=== PATIENT | male | born 1945 | race Caucasian/White ===

== ENCOUNTER → 2017-02-12 | Outpatient (CLI) | payer MEDICARE, BC | END | disposition home or self-care (01) | LOC: GMAJ 10:47 | PROVIDERS: ATTEND Family Medicine | DX: R97.20 Elevated prostate specific antigen [PSA] (principal); I10 Essential (primary) hypertension; N41.0 Acute prostatitis ==

== ENCOUNTER → 2017-02-19 | Outpatient (CLI) | payer MEDICARE, BC | END | disposition home or self-care (01) | LOC: GMAJ 10:09 | PROVIDERS: ATTEND Family Medicine | DX: E29.1 Testicular hypofunction (principal) ==

== ENCOUNTER 2017-03-24 09:04 | Emergency (ER) | payer MEDICARE, BC ==
[2017-03-24] MEDS ORDERED: NITROGLYCERIN 0.4 MG 25 EA TAB SL ONE (09:09)
[2017-03-24] MEDS: NITROGLYCERIN 0.4 MG 25 EA TAB SL ONE ×2 (09:12→09:20)
[2017-03-24] MEDS ORDERED: ASPIRIN TABLET 325 MG TAB PO ONE (09:13)
[2017-03-24] MEDS ORDERED: ASPIRIN (CHEWABLE) 81 MG TAB ONE (09:13)
[2017-03-24] MEDS ORDERED: SODIUM CHLORIDE 0.9% (FLUSH) 10 ML SYG IV PRN (09:13)
--- NOTE | 2017-03-24 10:01 | RAD ---
EXAM DESCRIPTION: Chest,1 View CLINICAL HISTORY: 71 years Male, CHEST PAIN COMPARISON: December 10, 2008 TECHNIQUE: AP portable chest. FINDINGS: Fair expansion of the lungs is evident without consolidation, layering effusion, or large mass. Heart size is upper limits of normal as is vascularity without overt failure or pleural effusions. No gross bony, hilar, or mediastinal abnormalities are noted. IMPRESSION: Tortuous aorta and upper normal heart size and vascularity. Electronically signed by: Dalton Owens MD 03/24/2017 10:00 AM CDT
[2017-03-24] MEDS ORDERED: POTASSIUM CHLORIDE ELIXIR 20 MEQ/15 ML UD PO ONE (10:06)
[2017-03-24] MEDS ORDERED: ENOXAPARIN SODIUM 100 MG/ML SYG SUBCU ONE (10:24)
[2017-03-24] MEDS ORDERED: ENOXAPARIN SODIUM 30 MG/0.3 ML SYG SUBCU ONE (10:24)
--- NOTE | 2017-03-24 10:43 | ED.PDOC ---
History of Present Illness - General Chief Complaint: Chest Pain/DC Time Seen by Provider: 03/24/17 09:04 Source: patient Exam Limitations: no limitations - History of Present Illness Initial Comments: the patient is a 71-year-old male presenting to the emergency room secondary to chest pain with associated shortness of breath that was rapid onset approximately one half hour prior to arrival. Chest pain as the left side. It does make him feel weak. It is a squeezing type pressure. He rates it as a 7 or 8 out of 10 for the pain but the shortness of breath is worse. He has 95% on room air. He has felt this sensation before back in 2000 when he received his previous cardiac stents. No syncope or near syncope. No history of pulmonary emboli or DVTs. The patient has had atrial fibrillation with a previous episode of urosepsis less than a year ago. He apparently saw Dr. Shane at the time. The atrial fibrillation resolved after the infection resolved. He does have a history of hypertension and hypercholesterolemia. He is not on Plavix but takes aspirin. He has not had any recent chest pain or shortness of breath aside from this episode. This chest pain is persistent and is not waxing or waning. There is no radiation to the jaw or down the arm. No feeling of palpitations. He is currently in atrial flutter but rate controlled. The patient's heart rate ranges from the mid 40s up to the high 90s. He does take metoprolol at baseline. He has had pauses between beats as long as one and a half seconds, one beat was almost 2 seconds between. Initial blood pressure was in the 180s on the systolic end. After 2 nitroglycerin the chest pain and shortness of breath have dropped to a 1-2 out of 10. Systolic blood pressures have also dropped to the 120s. The patient is feeling much better. Timing/Duration: 1/2 hour Severity: severe Improving Factors: nothing Worsening Factors: nothing Associated Symptoms: chest pain, malaise, shortness of breath Allergies/Adverse Reactions: Allergies Morphine Adverse Reaction (Verified 03/24/17 09:22) Other Penicillins Adverse Reaction (Verified 03/24/17 09:22) Not effective Tetracycline Adverse Reaction (Verified 03/24/17 09:22) Other Makes patient hallucinate heavily Home Medications: Ambulatory Orders Insulin Glargine [Toujeo Solostar] 64 unit SC BEDTIME 04/17/16 Liraglutide [Victoza] 1.8 mg SC BEDTIME 04/17/16 Lisinopril & Hydrochlorothiazi [Lisinopril/Hctz 20-12.5 mg] 1 tab PO DAILY 04/17 Metoprolol Succinate [Toprol Xl] 200 mg PO DAILY 04/17/16 amLODIPine BESYLATE [Norvasc] 10 mg PO DAILY 04/17/16 metFORMIN HCL [Glucophage] 1,000 mg PO BID 04/17/16 Aspirin [Aspirin Adult Low Dose] 81 mg PO DAILY 08/05/16 Cyclobenzaprine HCl [Flexeril] 10 mg PO Q12H PRN #30 tab 08/17/16 Rivaroxaban [Xarelto] 10 mg PO QD #9 tab 08/17/16 Review of Systems - Review of Systems Constitutional: States: malaise, weakness EENTM: States: no symptoms reported Respiratory: States: short of breath Cardiology: States: chest pain Gastrointestinal/Abdominal: States: nausea, vomiting - the patient has had 3 or 4 episodes of nausea and vomiting over the last few weeks. No blood in the vomitus. No diarrhea. No abdominal pain. Genitourinary: States: no symptoms reported Musculoskeletal: States: no symptoms reported Skin: States: no symptoms reported Neurological: States: anxiety - over this episode, weakness - generalized with the chest discomfort Endocrine: States: other - the patient is mildly diaphoretic upon arrival All other Systems: No Change from Baseline Past Medical History (General) - Patient Medical History Hx Stroke: No Hx of COPD: No Hx Cardiac Disorders: Yes - stents Hx Congestive Heart Failure: No Hx Hypertension: Yes Hx Diabetes: Yes Hx MRSA: No Surgical History: other - Vaccination History Hx Influenza Vaccination: No Hx Pneumococcal Vaccination: Yes - Social History Hx Tobacco Use: No Family Medical History - Family History Father Living Status: Hx Cardiac Disease: Yes Physical Exam - Physical Exam General Appearance: Alert, Anxious, Obvious distress Eye Exam: bilateral normal Ears, Nose, Throat: hearing grossly normal, normal ENT inspection, normal pharynx Neck: non-tender, full range of motion, supple Respiratory: chest non-tender, lungs clear, normal breath sounds, no respiratory distress, no accessory muscle use Cardiovascular/Chest: normal peripheral pulses, other - atrial flutter on EKG with rate control Peripheral Pulses: radial,right: 2+, radial,left: 2+, dorsalis pedis,right: 2+, dorsalis pedis,left: 2+, posterior tibialis,right: 2+, posterior tibialis,left: 2+ Gastrointestinal/Abdominal: non tender, soft, other - he patient is morbidly obese Rectal Exam: deferred Back Exam: normal inspection, no CVA tenderness, no vertebral tenderness Extremity: normal range of motion, non-tender, no calf tenderness, normal capillary refill, pedal edema - +1 to +2 bilaterally. This is apparently chronic. 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, alert, oriented x 3 Skin Exam: diaphoresis Comments: Vital Signs - 24 hr 03/24/17 03/24/17 03/24/17 09:07 09:08 09:20 Temperature 98.2 F Pulse Rate [ 78 76 76 APICAL] Respiratory 22 18 Rate Blood Pressure 142/100 145/79 [left brachial] O2 Sat by Pulse 95 98 Oximetry 03/24/17 10:00 Temperature Pulse Rate [ 70 APICAL] Respiratory 18 Rate Blood Pressure 117/57 [left brachial] O2 Sat by Pulse 97 Oximetry initial manual systolic blood pressure was 185/105 Progress - Progress Progress: 03/24/17 10:46 the patient is a 71-year-old male with a history of coronary artery disease and multiple risk factors presenting with acute onset chest pain with shortness of breath that is responsive to nitroglycerin. Initial hypertension was corrected with the nitroglycerin. Initial cardiac enzymes show elevation of the CK and CK-MB approximately 45 minutes after the start of chest pain. Troponin is negative at this point. Enzymes will obviously need to be repeated. The patient does appear to have atrial flutter with fair rate control. duration of this rhythm is unknown. He has had atrial fibrillation in the past when he was sick. He apparently went back to a normal sinus rhythm after he got well. The only blood thinner he has been on has been aspirin. The patient received a dose of aspirin here. He received 2 nitroglycerin here. He received a dose of Lovenox here. he received Plavix here. He was given oxygen here. The patient is doing much better at this point. He does appear to be at least having unstable angina, and I would not be surprised if his next set of cardiac enzymes showed an elevation in the troponin. He has seen Dr. shane in the past. vital signs appear stable. The patient is essentially chest pain-free at this point. Transfer for cardiology evaluation. - Results/Orders Results/Orders: Laboratory Tests 03/24/17 03/24/17 03/24/17 09:00 09:20 09:20 WBC 10.2 RBC 5.80 Hgb 15.9 Hct 48.4 MCV 83.5 MCH 27.4 MCHC 32.7 L RDW 14.6 H Plt Count 190 MPV 9.6 Absolute Neuts (auto) 5.70 Absolute Lymphs (auto) 3.20 Absolute Monos (auto) 1.10 H Absolute Eos (auto) 0.20 Absolute Basos (auto) 0.10 Neutrophils % 55.5 Lymphocytes % 31.2 Monocytes % 10.6 H Eosinophils % 1.8 Basophils % 0.9 PT 12.4 INR 1.100 PTT (SP) 28.6 D-Dimer, Quantitative 270 H* Sodium 140 Potassium 2.9 L Chloride 101 Carbon Dioxide 28 Anion Gap 13.9 BUN 17 Creatinine 1.13 BUN/Creatinine Ratio 15.0 Random Glucose 113 H Serum Osmolality 281.7 Calcium 9.0 Magnesium Cancelled 2.1 Creatine Kinase 372 H* CK-MB (CK-2) 12.4 H* CK-MB (CK-2) % 3.33 Troponin I 0.04 B-Natriuretic Peptide 312.0 H* TSH 2.01 urinalysis is pending at this time. Chest x-ray shows a tortuous aorta. No obvious fluid overload or new infiltrates. Departure - Departure Clinical Impression: Acute angina Disposition: Transfer to Hospital Referrals: Alcon Hollis MD [Primary Care Provider] - 1-2 Weeks Home Medications: Ambulatory Orders Insulin Glargine [Toujeo Solostar] 64 unit SC BEDTIME 04/17/16 Liraglutide [Victoza] 1.8 mg SC BEDTIME 04/17/16 Lisinopril & Hydrochlorothiazi [Lisinopril/Hctz 20-12.5 mg] 1 tab PO DAILY 04/17 Metoprolol Succinate [Toprol Xl] 200 mg PO DAILY 04/17/16 amLODIPine BESYLATE [Norvasc] 10 mg PO DAILY 04/17/16 metFORMIN HCL [Glucophage] 1,000 mg PO BID 04/17/16 Aspirin [Aspirin Adult Low Dose] 81 mg PO DAILY 08/05/16 Cyclobenzaprine HCl [Flexeril] 10 mg PO Q12H PRN #30 tab 08/17/16 Rivaroxaban [Xarelto] 10 mg PO QD #9 tab 08/17/16 Transfer to Outside Facility - Transfer Information Accepting Provider:: dr chito dodson Accepting Facility: [facility] Reason for Transfer: required specialist not available
[2017-03-24] MEDS ORDERED: CLOPIDOGREL 75 MG TAB PO ONE (10:51)
[2017-03-24 11:08] VITALS: BP 144/72; TEMP 97; O2SAT 94
== END 2017-03-24 11:08 | disposition short-term general hospital (02) ==
LOC: ER 09:04
DX: I20.9 Angina pectoris, unspecified (principal); I10 Essential (primary) hypertension; E11.9 Type 2 diabetes mellitus without complications; E78.00 Pure hypercholesterolemia, unspecified; Z98.61 Coronary angioplasty status; Z79.4 Long term (current) use of insulin; Z79.82 Long term (current) use of aspirin; Z79.899 Other long term (current) drug therapy; Z88.0 Allergy status to penicillin; Z88.6 Allergy status to analgesic agent; Z88.3 Allergy status to other anti-infective agents
CPT/HCPCS: 36415; 36416; 71010; 80048; 81001; 82550; 82553; 83880; 84443; 84484; 85025; 85379; 85610; 85730; 87040; 93005; 94760; J1650

== ENCOUNTER 2017-04-03 06:34 | Emergency (ER) | payer MEDICARE, BC ==
[2017-04-03] MEDS ORDERED: NITROGLYCERIN 0.4 MG 25 EA TAB SL ONE ×2 (06:35→06:40)
[2017-04-03 06:49] VITALS: TEMP 98.2
--- NOTE | 2017-04-03 07:28 | ED.PDOC ---
History of Present Illness - General Chief Complaint: Chest Pain/[place] Stated Complaint: SOB, CP Time Seen by Provider: 04/03/17 06:36 Source: patient Exam Limitations: no limitations - History of Present Illness Initial Comments: CP STARTED THIS AM POST [employer]. DR TUCKER GAVE NTG AND CP RESOLVED. EKG SHOWED AFIB , RATE CONTROLLED. I EXAMINED PT WELL AND PT IS STILL CP FREE SINCE NTG. KEEPING IN ER FOR CP R/O WITH TOTAL 4 SETS CARD ENZ Q2H. PT DID NOT TAKE HIS MORNING TOPROL XL 200 QDAY OR ELIQUIS 5 BID, THUS WILL GIVE IN ER. (NOTE: PT STATES HE TAKES ELIQUIS, NOT THE XARELTO LISTED IN HIS CHART.) RECENT CARDIAC HX: 1 1/2 WKS AGO, CAME TO ER FOR SIMILAR CP. TRANSFERRED TO [facility]. CARDS W/U TREADMILL STRESS TEST (STOPPED EARLY D/T SOB AND INCR BP). WENT TO [facility] [employer] AND GOT STENTED. (ALSO STENT 2000) CARDS NEWLY DX'D AFIB AND STARTED METOPROLOL AND ELIQUIS. Timing/Duration: 1 hour Severity/Quality: severe, pressure Location: substernal Chest Pain Radiation: no radiation Activities at Onset: sleep Prior Chest Pain/Cardiac Workup: cardiac cath, echocardiography, stress test Nitro Today/Relief: 0.4 mg x 2, provided by ED, complete relief Aspirin Treatment Today: 325 mg x 1, provided by ED Associated Symptoms: denies symptoms Allergies/Adverse Reactions: Allergies Morphine Adverse Reaction (Verified 04/03/17 06:49) Other Penicillins Adverse Reaction (Verified 04/03/17 06:49) Not effective Tetracycline Adverse Reaction (Verified 04/03/17 06:49) Other Makes patient hallucinate heavily Home Medications: Ambulatory Orders Insulin Glargine [Toujeo Solostar] 64 unit SC BEDTIME 04/17/16 Liraglutide [Victoza] 1.8 mg SC BEDTIME 04/17/16 Lisinopril & Hydrochlorothiazi [Lisinopril/Hctz 20-12.5 mg] 1 tab PO DAILY 04/17 Metoprolol Succinate [Toprol Xl] 200 mg PO DAILY 04/17/16 amLODIPine BESYLATE [Norvasc] 10 mg PO DAILY 04/17/16 metFORMIN HCL [Glucophage] 1,000 mg PO BID 04/17/16 Aspirin [Aspirin Adult Low Dose] 81 mg PO DAILY 08/05/16 Rivaroxaban [Xarelto] 10 mg PO QD #9 tab 08/17/16 Nitroglycerin 0.4 mg Tab [Nitrostat] 0.4 mg SL Q5MIN PRN #15 bttl 04/03/17 Review of Systems - Review of Systems Constitutional: States: no symptoms reported EENTM: States: no symptoms reported Respiratory: States: no symptoms reported. Denies: cough, short of breath, wheezing Cardiology: States: no symptoms reported. Denies: chest pain, edema, palpitations Gastrointestinal/Abdominal: States: no symptoms reported Genitourinary: States: no symptoms reported Musculoskeletal: States: no symptoms reported Skin: States: no symptoms reported Neurological: States: no symptoms reported Endocrine: States: no symptoms reported Hematologic/Lymphatic: States: no symptoms reported All other Systems: Reviewed and Negative Past Medical History (General) - Patient Medical History Hx Seizures: No Hx Stroke: No Hx Dementia: No Hx Asthma: No Hx of COPD: No Hx Cardiac Disorders: Yes - stents Hx Congestive Heart Failure: No Hx Pacemaker: No Hx Hypertension: Yes Hx Thyroid Disease: No Hx Diabetes: Yes Hx Gastroesophageal Reflux: Yes Hx Renal Disease: No Hx Cancer: No Hx of HIV: No Hx Hepatitis C: No Hx MRSA: No - Vaccination History Hx Tetanus, Diphtheria Vaccination: No Hx Influenza Vaccination: No Hx Pneumococcal Vaccination: Yes Immunizations Up to Date: No - Social History Hx Tobacco Use: No Hx Chewing Tobacco Use: No Hx Alcohol Use: No Hx Substance Use: No Hx Substance Use Treatment: No Hx Depression: No Feels Threatened In Home Enviroment: No Feels Threatened In a Relationship: No Hx Physical Abuse: No Hx Emotional Abuse: No Family Medical History - Family History Father Living Status: Hx Cardiac Disease: Yes Physical Exam - Physical Exam General Appearance: Alert, Comfortable Eyes, Ears, Nose, Throat Exam: PERRL/EOMI, normal ENT inspection Neck: non-tender, full range of motion, supple, normal inspection Respiratory: chest non-tender, lungs clear, normal breath sounds, no respiratory distress, no accessory muscle use Cardiovascular/Chest: no edema, no gallop, no JVD, no murmur, irregularly irregular Peripheral Pulses: radial,right: 2+, radial,left: 2+ Gastrointestinal/Abdominal: normal bowel sounds, non tender Extremity: normal range of motion, non-tender Neurologic: no motor/sensory deficits, alert, oriented x 3 Skin Exam: normal color, warm/dry Lymphatic: no adenopathy Progress - Results/Orders Results/Orders: CARDIAC ENZ NEG X 4 OVER 7 HRS. GA RULED OUT. PT HAS HAD NO FURTHER CP IN ER. SAFE TO DC HOME WITH RX FOR NTG FOR ANGINAL-TYPE CHEST PAIN THAT IMPROVES WITH NTG. I EXPLAINED TO CONTINUE THE METOPROLOL AND ELIQUIS FOR THE AFIB. HE HAS F/U W/ PCP AND CARDS IN 1 AND 2 WEEKS. Departure - Departure Clinical Impression: Atypical chest pain, Atrial fibrillation Disposition: Discharge to Home or Self Care Condition: Good Departure Forms: ED Discharge - Pt. Copy, Patient Portal Self Enrollment Instructions: DI for Angina Diet: resume usual diet Activity: walking as tolerated Referrals: Alcon Hollis MD [Primary Care Provider] - 1 Week Prescriptions: Nitroglycerin 0.4 mg Tab [Nitrostat] 0.4 mg SL Q5MIN PRN #15 bttl PRN Reason: Chest Pain Home Medications: Ambulatory Orders Insulin Glargine [Toujeo Solostar] 64 unit SC BEDTIME 04/17/16 Liraglutide [Victoza] 1.8 mg SC BEDTIME 04/17/16 Lisinopril & Hydrochlorothiazi [Lisinopril/Hctz 20-12.5 mg] 1 tab PO DAILY 04/17 Metoprolol Succinate [Toprol Xl] 200 mg PO DAILY 04/17/16 amLODIPine BESYLATE [Norvasc] 10 mg PO DAILY 04/17/16 metFORMIN HCL [Glucophage] 1,000 mg PO BID 04/17/16 Aspirin [Aspirin Adult Low Dose] 81 mg PO DAILY 08/05/16 Rivaroxaban [Xarelto] 10 mg PO QD #9 tab 08/17/16 Nitroglycerin 0.4 mg Tab [Nitrostat] 0.4 mg SL Q5MIN PRN #15 bttl 04/03/17
[2017-04-03] MEDS ORDERED: APIXABAN 2.5 MG TAB PO ONE ×2 (07:50→11:20)
[2017-04-03] MEDS ORDERED: ASPIRIN (CHEWABLE) 81 MG TAB PO ONE (07:50)
[2017-04-03] MEDS ORDERED: METOPROLOL SUCCINATE XL 50 MG TAB PO ONE (07:50)
--- NOTE | 2017-04-03 08:27 | RAD ---
EXAM DESCRIPTION: Chest,1 View CLINICAL HISTORY: chest pain, dyspnea COMPARISON: None available FINDINGS: The heart is at the upper limits of normal size for AP technique, stable. Mediastinal contours are otherwise unremarkable. There is no airspace consolidation or pleural effusion. The bronchovascular markings are within normal limits, and the lungs are not hyperinflated. There is no pneumothorax or acute fracture. IMPRESSION: Stable borderline cardiomegaly, otherwise unremarkable exam. Electronically signed by: Adrián Betancourt MD 04/03/2017 8:27 AM CDT
[2017-04-03] MEDS ORDERED: METOPROLOL SUCCINATE XL 50 MG TAB ONE (11:18)
[2017-04-03] MEDS ORDERED: ASPIRIN (CHEWABLE) 81 MG TAB ONE (11:18)
[2017-04-03 13:12] VITALS: O2SAT 94
[2017-04-03 14:12] VITALS: BP 151/80
== END 2017-04-03 14:12 | disposition home or self-care (01) ==
LOC: ER 06:34
DX: I48.91 Unspecified atrial fibrillation (principal); R07.89 Other chest pain; I10 Essential (primary) hypertension; E11.9 Type 2 diabetes mellitus without complications; K21.9 Gastro-esophageal reflux disease without esophagitis; Z98.61 Coronary angioplasty status; Z79.4 Long term (current) use of insulin; Z79.82 Long term (current) use of aspirin; Z79.01 Long term (current) use of anticoagulants; Z79.899 Other long term (current) drug therapy; Z88.6 Allergy status to analgesic agent; Z88.0 Allergy status to penicillin; Z88.3 Allergy status to other anti-infective agents

== ENCOUNTER 2017-05-20 21:10 | Emergency (ER) | payer MEDICARE, BC ==
[2017-05-20 21:35] VITALS: TEMP 98.7
--- NOTE | 2017-05-20 21:46 | ED.PDOC ---
History of Present Illness - General Chief Complaint: Chest Pain/[place] Stated Complaint: chest pain Time Seen by Provider: 05/20/17 21:45 Source: patient, RN notes reviewed, Vital Signs reviewed Exam Limitations: no limitations - History of Present Illness Initial Comments: Soren Quezada 71 y/o male stated while at home resting he had onset of chest pressure left side of his chest took 3 doses of nitroglycerin and on arrival at [facility] ER chest pressure resolved. Was recently diagnosed with a.fib March 2406/2017 underwent cardiac work up in and scheduled for cardioversion on .Presntly taking NOACS. Timing/Duration: 4-6 hours Severity: moderate Location: central Activities at Onset: rest Prior Chest Pain/Cardiac Workup: cardiac cath, cardiolye scan, echocardiography , other - a fib Improving Factors: rest Worsening Factors: movement Nitro Today/Relief: 0.4 mg x 3 Aspirin Treatment Today: 325 mg x 1 Associated Symptoms: shortness of breath Allergies/Adverse Reactions: Allergies Morphine Adverse Reaction (Verified 04/03/17 06:49) Other Penicillins Adverse Reaction (Verified 04/03/17 06:49) Not effective Tetracycline Adverse Reaction (Verified 04/03/17 06:49) Other Makes patient hallucinate heavily Home Medications: Ambulatory Orders Insulin Glargine [Toujeo Solostar] 64 unit SC BEDTIME 04/17/16 Liraglutide [Victoza] 1.8 mg SC BEDTIME 04/17/16 Metoprolol Succinate [Toprol Xl] 200 mg PO DAILY 04/17/16 Aspirin [Aspirin Adult Low Dose] 81 mg PO DAILY 08/05/16 Nitroglycerin 0.4 mg Tab [Nitrostat] 0.4 mg SL Q5MIN PRN #15 bttl 04/03/17 Review of Systems - Review of Systems Constitutional: States: no symptoms reported EENTM: States: no symptoms reported Respiratory: States: see HPI Cardiology: States: see HPI Gastrointestinal/Abdominal: States: no symptoms reported Genitourinary: States: no symptoms reported Skin: States: no symptoms reported Neurological: States: no symptoms reported Endocrine: States: no symptoms reported Hematologic/Lymphatic: States: no symptoms reported Past Medical History (General) - Patient Medical History Hx Seizures: No Hx Stroke: No Hx Dementia: No Hx Asthma: No Hx of COPD: No Hx Cardiac Disorders: Yes - A-fib Hx Congestive Heart Failure: No Hx Pacemaker: No Hx Hypertension: Yes Hx Thyroid Disease: No Hx Diabetes: Yes Hx Gastroesophageal Reflux: Yes Hx Renal Disease: No Hx Cancer: No Hx of HIV: No Hx Hepatitis C: No Hx MRSA: No Surgical History: other - cardiac stent,knee right - Vaccination History Hx Tetanus, Diphtheria Vaccination: No Hx Influenza Vaccination: No Hx Pneumococcal Vaccination: Yes - Social History Hx Tobacco Use: No Hx Chewing Tobacco Use: No Hx Alcohol Use: No Hx Substance Use: No Hx Substance Use Treatment: No Hx Depression: No Hx Physical Abuse: No Hx Emotional Abuse: No - Activities of Daily Living Patient Lives Alone: No - family Grooming Ability: Independent Eating (Feeding) Ability: Independent Toileting Ability: Independent Family Medical History - Family History Father Living Status: Hx Cardiac Disease: Yes - multiple family members Physical Exam - Physical Exam General Appearance: Alert, Comfortable, No apparent distress Eyes, Ears, Nose, Throat Exam: PERRL/EOMI, normal ENT inspection, TMs normal Neck: non-tender, full range of motion, supple Respiratory: chest non-tender, lungs clear, normal breath sounds, no respiratory distress Cardiovascular/Chest: normal peripheral pulses, no gallop, no murmur Peripheral Pulses: radial,right: 2+, radial,left: 2+ Gastrointestinal/Abdominal: normal bowel sounds, non tender, soft, no organomegaly Extremity: normal range of motion, non-tender, no calf tenderness, pedal edema - 3+ Neurologic: alert, normal mood/affect Skin Exam: normal color, warm/dry Lymphatic: no adenopathy Progress - Progress Progress: 05/20/17 23:26 Vital Signs - 8 hr 05/20/17 05/20/17 05/20/17 21:28 21:35 22:11 Temperature 98.7 F Pulse Rate [ 80 76 67 Apical] Respiratory 20 20 Rate Blood Pressure 142/96 155/82 [Right Arm] O2 Sat by Pulse 96 94 L Oximetry 05/21/17 00:24 Vital Signs - 8 hr 05/20/17 05/20/17 05/20/17 21:28 21:35 22:11 Temperature 98.7 F Pulse Rate [ 80 76 67 Apical] Respiratory 20 20 Rate Blood Pressure 142/96 155/82 [Right Arm] O2 Sat by Pulse 96 94 L Oximetry 05/21/17 00:32 Recommended hospital admit for observation but declined has appointment with training specialist next week and feeling better asymptomatic. - Results/Orders Results/Orders: Laboratory Tests 05/20/17 05/20/17 05/20/17 21:30 21:30 21:30 WBC 7.7 RBC 5.66 Hgb 14.4 Hct 45.3 MCV 80.1 MCH 25.4 L MCHC 31.8 L RDW 14.6 H Plt Count 173 MPV 9.4 Absolute Neuts (auto) 4.30 Absolute Lymphs (auto) 2.30 Absolute Monos (auto) 1.00 H Absolute Eos (auto) 0.10 Absolute Basos (auto) 0.00 Neutrophils % 56.0 Lymphocytes % 29.7 Monocytes % 12.7 H Eosinophils % 1.1 Basophils % 0.5 PT 16.6 H INR 1.470 PTT (SP) 34.1 D-Dimer, Quantitative < 230 Sodium 139 Potassium 3.4 L Chloride 98 L Carbon Dioxide 30 Anion Gap 14.4 BUN 22 H Creatinine 1.31 H BUN/Creatinine Ratio 16.8 Random Glucose 226 H Serum Osmolality 288.0 Calcium 8.8 Magnesium 2.0 Total Bilirubin 1.7 H Direct Bilirubin 0.3 H Indirect Bilirubin 1.4 H AST 17 ALT 16 Alkaline Phosphatase 55 Creatine Kinase 108 CK-MB (CK-2) 2.8 CK-MB (CK-2) % Not Reportable Troponin I 0.05 B-Natriuretic Peptide 203.0 H* Cancelled Serum Total Protein 7.4 Albumin 3.8 05/20/17 23:40 WBC RBC Hgb Hct MCV MCH MCHC RDW Plt Count MPV Absolute Neuts (auto) Absolute Lymphs (auto) Absolute Monos (auto) Absolute Eos (auto) Absolute Basos (auto) Neutrophils % Lymphocytes % Monocytes % Eosinophils % Basophils % PT INR PTT (SP) D-Dimer, Quantitative Sodium Potassium Chloride Carbon Dioxide Anion Gap BUN Creatinine BUN/Creatinine Ratio Random Glucose Serum Osmolality Calcium Magnesium Total Bilirubin Direct Bilirubin Indirect Bilirubin AST ALT Alkaline Phosphatase Creatine Kinase CK-MB (CK-2) CK-MB (CK-2) % Troponin I 0.04 B-Natriuretic Peptide Serum Total Protein Albumin - EKG/XRAY/CT EKG: Atrial, Fibrillation, RBBB Comments: heart rate-71 XRAY: chest - no acute abnormalities/radiologist Departure - Departure Clinical Impression: Chest tightness or pressure, Atrial fibrillation with normal ventricular rate Coronary artery disease Qualifiers: Coronary Disease-Associated Artery/Lesion type: unspecified vessel or lesion type [place] vs. transplanted heart: [place] heart Associated angina: with unspecified angina Qualified Code(s): I25.119 - Atherosclerotic heart disease of [place] coronary artery with unspecified angina pectoris Time of Disposition: 00:26 Disposition: Discharge to Home or Self Care Condition: Fair Departure Forms: ED Discharge - Pt. Copy, Patient Portal Self Enrollment Referrals: Alcon Hollis MD [Primary Care Provider] - 1-2 Weeks Home Medications: Ambulatory Orders Insulin Glargine [Toujeo Solostar] 64 unit SC BEDTIME 04/17/16 Liraglutide [Victoza] 1.8 mg SC BEDTIME 04/17/16 Metoprolol Succinate [Toprol Xl] 200 mg PO DAILY 04/17/16 Aspirin [Aspirin Adult Low Dose] 81 mg PO DAILY 08/05/16 Nitroglycerin 0.4 mg Tab [Nitrostat] 0.4 mg SL Q5MIN PRN #15 bttl 04/03/17 Additional Instructions: RETURN TO EMERGENCY ROOM NEEDED;CONTINUE WITH ALL HOME MEDICATIONS ;FOLLOW UP WITH PRIMARY MD/SUPERVISOR PA[employer]ING CALL FOR APPOINTMENT
[2017-05-20] MEDS ORDERED: NITROGLYCERIN 0.4 MG 25 EA TAB SL ONE (21:47)
[2017-05-20] MEDS ORDERED: ASPIRIN (CHEWABLE) 81 MG TAB PO ONE (21:47)
--- NOTE | 2017-05-20 22:30 | RAD ---
EXAM: Chest,1 View CLINICAL INDICATION: 71-year-old male with chest pain and shortness of breath. TECHNIQUE: Single view, AP portable chest was obtained. COMPARISON: 04/03/2017. FINDINGS: Prominent cardiac and mediastinal silhouette. Stable cardiomegaly. Lungs are clear without focal opacity, pneumothorax or pleural effusions. The visualized bones are within normal limits. IMPRESSION: No acute cardiopulmonary abnormalities. Electronically signed by: Ashtyn Daugherty MD 05/20/2017 10:29 PM CDT Workstation: [id number]
[2017-05-20 22:47] VITALS: O2SAT 94
[2017-05-21 01:00] VITALS: BP 160/86
== END 2017-05-21 01:01 | disposition home or self-care (01) ==
LOC: ER 21:10
DX: I25.119 Atherosclerotic heart disease of native coronary artery with unspecified angina pectoris (principal); I48.91 Unspecified atrial fibrillation; Z98.61 Coronary angioplasty status; I10 Essential (primary) hypertension; E11.9 Type 2 diabetes mellitus without complications; K21.9 Gastro-esophageal reflux disease without esophagitis; I45.10 Unspecified right bundle-branch block; Z79.4 Long term (current) use of insulin; Z79.2 Long term (current) use of antibiotics; Z79.899 Other long term (current) drug therapy; Z88.6 Allergy status to analgesic agent; Z88.0 Allergy status to penicillin; Z88.3 Allergy status to other anti-infective agents

== ENCOUNTER → 2017-05-23 | Outpatient (CLI) | payer MEDICARE, BC | END | disposition home or self-care (01) | LOC: LAB.O 09:16 | PROVIDERS: ATTEND Internal Medicine Interventional Cardiology | DX: I48.91 Unspecified atrial fibrillation (principal) ==

== ENCOUNTER → 2017-09-11 | Outpatient (CLI) | payer MEDICARE, BC | END | disposition home or self-care (01) | LOC: GMAJ 14:19 | PROVIDERS: ATTEND Family Medicine | DX: E29.1 Testicular hypofunction (principal); I10 Essential (primary) hypertension ==

== ENCOUNTER 2017-09-21 10:39 | Emergency (ER) | payer MEDICARE, BC ==
[2017-09-21 10:54] VITALS: TEMP 97.7
--- NOTE | 2017-09-21 11:02 | ED.PDOC ---
History of Present Illness - General Chief Complaint: Blood Pressure Problem Stated Complaint: elevated BP Time Seen by Provider: 09/21/17 10:41 Source: patient, RN notes reviewed, Vital Signs reviewed, EMS Exam Limitations: no limitations - History of Present Illness Initial Comments: Patient comes to ER via EMS with c/o elevated blood pressure. Reports his blood pressure was 220/140 last night and 222/118 this morning. He took 3 SLNTG and his usual morning BP medications w/o improvement so he called EMS. He has had issues with atrial fibrillation and SOB since March 2017 but has been doing well since June. Denies chest pain, VANEGAS or SOB with this episode. Timing/Duration: 7-24 hours Severity: moderate Location: other - No pain Activities at Onset: rest Prior Chest Pain/Cardiac Workup: cardiac cath, echocardiography, stress test, other - atrial fibrillation w/ unsuccessful cardia ablation, CAD - followed by Dr. Shane Improving Factors: medication Worsening Factors: nothing Nitro Today/Relief: 0.4 mg x 4, provided by EMS, provided at home Aspirin Treatment Today: no aspirin today - On Eliquis Associated Symptoms: denies symptoms Allergies/Adverse Reactions: Allergies Morphine Adverse Reaction (Verified 04/03/17 06:49) Other Penicillins Adverse Reaction (Verified 04/03/17 06:49) Not effective Tetracycline Adverse Reaction (Verified 04/03/17 06:49) Other Makes patient hallucinate heavily Home Medications: Ambulatory Orders Insulin Glargine [Toujeo Solostar] 64 unit SC BEDTIME 04/17/16 Liraglutide [Victoza] 1.8 mg SC BEDTIME 04/17/16 Metoprolol Succinate [Toprol Xl] 200 mg PO DAILY 04/17/16 Aspirin [Aspirin Adult Low Dose] 162 mg PO DAILY 08/05/16 Nitroglycerin 0.4 mg Tab [Nitrostat] 0.4 mg SL Q5MIN PRN #15 bttl 04/03/17 Amlodipine Besylate [Norvasc] 2.5 mg PO DAILY 09/21/17 Apixaban [Eliquis] 5 mg PO BID 09/21/17 Isosorbide Mononitrate [Isosorbide Mononitrate ER] 30 mg PO DAILY 09/21/17 Rosuvastatin Calcium [Crestor] 10 mg PO DAILY 09/21/17 Testosterone Cypionate [Depo-Testosterone] 200 mg IM [id number] 09/21/17 Valsartan-Hydrochlorothiazide [Diovan Hct 320-25 mg] 1 tab PO DAILY 09/21/17 Review of Systems - Review of Systems Constitutional: States: no symptoms reported. Denies: diaphoresis, malaise Respiratory: States: no symptoms reported. Denies: short of breath Cardiology: States: see HPI. Denies: chest pain, palpitations Gastrointestinal/Abdominal: States: no symptoms reported Musculoskeletal: States: no symptoms reported Skin: States: no symptoms reported Neurological: States: no symptoms reported. Denies: headache All other Systems: No Change from Baseline Past Medical History (General) - Patient Medical History Hx Seizures: No Hx Stroke: No Hx Dementia: No Hx Asthma: No Hx of COPD: No Hx Cardiac Disorders: Yes - A-fib Hx Congestive Heart Failure: No Hx Pacemaker: No Hx Hypertension: Yes Hx Thyroid Disease: No Hx Diabetes: Yes Hx Gastroesophageal Reflux: Yes Hx Renal Disease: No Hx Cancer: No Hx of HIV: No Hx Hepatitis C: No Hx MRSA: No - Vaccination History Hx Tetanus, Diphtheria Vaccination: No Hx Influenza Vaccination: No Hx Pneumococcal Vaccination: Yes - Social History Hx Tobacco Use: No Hx Chewing Tobacco Use: No Hx Alcohol Use: No Hx Substance Use: No Hx Substance Use Treatment: No Hx Depression: No Hx Physical Abuse: No Hx Emotional Abuse: No Family Medical History - Family History Father Living Status: Hx Cardiac Disease: Yes - multiple family members Physical Exam - Physical Exam General Appearance: Alert, Comfortable, No apparent distress, Well Developed, Well Groomed, Well Hydrated, Well Nourished Neck: supple, normal inspection Respiratory: lungs clear, normal breath sounds, no respiratory distress, no accessory muscle use Cardiovascular/Chest: no gallop, no murmur, irregularly irregular Gastrointestinal/Abdominal: normal bowel sounds, non tender, soft, no organomegaly Extremity: pedal edema - 1-2+ pitting edema Neurologic: alert, normal mood/affect, oriented x 3 Skin Exam: normal color, warm/dry Comments: Vital Signs 09/21/17 10:50 Temperature 97.7 F Pulse Rate [ 94 H Left Brachial] Respiratory 20 Rate Blood Pressure 157/54 [Left Arm] O2 Sat by Pulse 96 Oximetry Progress - Progress Progress: 09/21/17 11:05 BP improved on arrival to ER - initial BP 157/54 09/21/17 11:54 Potassium 2.9, will give KCl 40meq IV 09/21/17 14:30 Patient reports he is feeling better after Potassium infusion Cardiac enzymes normal X2. Vital Signs 09/21/17 09/21/17 09/21/17 10:50 11:14 12:01 Temperature 97.7 F Pulse Rate [ 94 H 94 H 78 Left Brachial] Respiratory 20 20 Rate Blood Pressure 157/54 162/87 [Left Arm] O2 Sat by Pulse 96 97 Oximetry 09/21/17 13:00 Temperature Pulse Rate [ 70 Left Brachial] Respiratory 20 Rate Blood Pressure 145/81 [Left Arm] O2 Sat by Pulse 95 Oximetry - Results/Orders Results/Orders: Laboratory Tests 09/21/17 09/21/17 09/21/17 11:09 11:09 14:02 WBC 7.6 RBC 5.52 Hgb 14.3 Hct 43.9 MCV 79.4 L MCH 25.9 L MCHC 32.6 L RDW 17.9 H Plt Count 165 MPV 9.0 Absolute Neuts (auto) 5.30 Absolute Lymphs (auto) 1.40 Absolute Monos (auto) 0.80 Absolute Eos (auto) 0.10 Absolute Basos (auto) 0.10 Neutrophils % 70.4 Lymphocytes % 17.8 L Monocytes % 10.1 H Eosinophils % 0.9 L Basophils % 0.8 Sodium 137 Potassium 2.9 L Chloride 98 L Carbon Dioxide 33 H Anion Gap 8.9 L BUN 13 Creatinine 0.96 BUN/Creatinine Ratio 13.5 Random Glucose 136 H Serum Osmolality 276.0 Calcium 9.0 Total Bilirubin 2.0 H AST 17 ALT 14 Alkaline Phosphatase 56 Creatine Kinase 68 63 CK-MB (CK-2) 2.2 2.2 CK-MB (CK-2) % Not Reportable Not Reportable Troponin I 0.04 0.04 B-Natriuretic Peptide 330.0 H* Serum Total Protein 7.3 Albumin 3.9 Globulin 3.4 Albumin/Globulin Ratio 1.1 - EKG/XRAY/CT EKG: Atrial, Fibrillation, RBBB, nonspecific ST T wave Chg, Unchanged from - 05/20 Comments: No RVR - Rate 81 bpm XRAY: chest - Cardiomegaly, w/o no acute findings per Radiologist Departure - Departure Clinical Impression: Hyperkalemia Hypertension Qualifiers: Hypertension type: essential hypertension Qualified Code(s): I10 - Essential ( primary) hypertension Time of Disposition: 14:31 Disposition: Discharge to Home or Self Care Condition: Good Departure Forms: ED Discharge - Pt. Copy, Patient Portal Self Enrollment Instructions: DI for High Blood Pressure Diet: resume usual diet Activity: increase activity as tolerated Referrals: Alcon Hollis MD [Primary Care Provider] - 1-5 Days Home Medications: Ambulatory Orders Insulin Glargine [Toujeo Solostar] 64 unit SC BEDTIME 04/17/16 Liraglutide [Victoza] 1.8 mg SC BEDTIME 04/17/16 Metoprolol Succinate [Toprol Xl] 200 mg PO DAILY 04/17/16 Aspirin [Aspirin Adult Low Dose] 162 mg PO DAILY 08/05/16 Nitroglycerin 0.4 mg Tab [Nitrostat] 0.4 mg SL Q5MIN PRN #15 bttl 04/03/17 Amlodipine Besylate [Norvasc] 2.5 mg PO DAILY 09/21/17 Apixaban [Eliquis] 5 mg PO BID 09/21/17 Isosorbide Mononitrate [Isosorbide Mononitrate ER] 30 mg PO DAILY 09/21/17 Rosuvastatin Calcium [Crestor] 10 mg PO DAILY 09/21/17 Testosterone Cypionate [Depo-Testosterone] 200 mg IM .[id number] 09/21/17 Valsartan-Hydrochlorothiazide [Diovan Hct 320-25 mg] 1 tab PO DAILY 09/21/17 Additional Instructions: Restart Potassium pills
--- NOTE | 2017-09-21 11:26 | RAD ---
Procedure: XR CHEST 1 VIEW Exam Date: 09/21/2017 10:59 AM [employer] Ordering Provider: Whitley Estrada Clinical Indication: elevated BP Comparison: None Findings: Lungs are clear. Heart size is enlarged. No acute osseous abnormality. Impression: Cardiomegaly. No acute pulmonary process. Electronically signed by: Chacha Warren MD 09/21/2017 11:25 AM [employer]
[2017-09-21] MEDS ORDERED: KCL 40 MEQ/WATER FOR INJECTION 40 MEQ in PREMIX BAG 1 BAG IVPB ONE (11:46)
[2017-09-21] MEDS ORDERED: KCL 40 MEQ/WATER FOR INJECTION 100 ML IVPB ONE (11:50)
[2017-09-21 14:41] VITALS: BP 166/72; O2SAT 96
== END 2017-09-21 14:41 | disposition home or self-care (01) ==
LOC: ER 10:39
DX: I10 Essential (primary) hypertension (principal); E87.5 Hyperkalemia; I48.91 Unspecified atrial fibrillation; I51.7 Cardiomegaly; E11.9 Type 2 diabetes mellitus without complications; K21.9 Gastro-esophageal reflux disease without esophagitis; Z79.82 Long term (current) use of aspirin; Z79.899 Other long term (current) drug therapy; Z88.0 Allergy status to penicillin; Z88.8 Allergy status to other drugs, medicaments and biological substances
CPT/HCPCS: 36415; 71010; 80053; 82550; 82553; 83880; 84484; 85025; 93005; J3480

== ENCOUNTER → 2017-10-30 | Outpatient (CLI) | payer MEDICARE, BC | END | disposition home or self-care (01) | LOC: LAB.O 09:41 | PROVIDERS: ATTEND Internal Medicine Nephrology | DX: I10 Essential (primary) hypertension (principal); E27.9 Disorder of adrenal gland, unspecified ==

== ENCOUNTER → 2017-11-01 | Outpatient (CLI) | payer MEDICARE, BC | LOC: LAB.O 11:24 | PROVIDERS: ATTEND Internal Medicine Nephrology | DX: N18.4 Chronic kidney disease, stage 4 (severe) (principal) ==

== ENCOUNTER 2017-11-05 10:05 | Emergency (ER) | payer MEDICARE, BC ==
[2017-11-05] MEDS ORDERED: SODIUM CHLORIDE 0.9% (FLUSH) 10 ML SYG IV PRN (10:13)
[2017-11-05] MEDS ORDERED: METOPROLOL TARTRATE INJ 5 MG/5 ML VIAL IV ONE (10:13)
[2017-11-05] MEDS ORDERED: NITROGLYCERIN 0.4 MG 25 EA TAB SL ONE (10:13)
--- NOTE | 2017-11-05 10:13 | ED.PDOC ---
History of Present Illness - General Chief Complaint: Chest Pain/LA Stated Complaint: chest pain Time Seen by Provider: 11/05/17 10:12 Source: patient, RN notes reviewed, Vital Signs reviewed, family Exam Limitations: no limitations Additional Information: Pt reports chest pain which felt "like a knife" upon awakening this am. He states he took NTG and the pain moved to the shoulder blades. Upon assessment in ED Pt states chest pain was subsiding. Pt does report eating steak last night with steak sauce. He did not go straight to bed after eating but his did note that he likes to eat spicy food. Pt in no acute distress, no diaphoresis upon assessment. BP elevated. Pt has a history of difficult to control HTN. He is followed by BP specialist Dr. Warren (Scouring Machine Tender), Ball Worker - Dr. Shane, and his PCM - Dr. Hollis. - History of Present Illness Timing/Duration: 1-3 hours - prior to arrival (around 0800). Severity: moderate Location: substernal, central, epigastric Activities at Onset: none - getting up from bed Prior Chest Pain/Cardiac Workup: cardiac cath, echocardiography, stress test Improving Factors: medication - NTG Worsening Factors: nothing Nitro Today/Relief: 0.4 mg x 1, mild relief Aspirin Treatment Today: 81 mg x 2 - taken at home Associated Symptoms: denies symptoms - other than diminishing chest pain Allergies/Adverse Reactions: Allergies Morphine Adverse Reaction (Verified 04/03/17 06:49) Other Penicillins Adverse Reaction (Verified 04/03/17 06:49) Not effective Tetracycline Adverse Reaction (Verified 04/03/17 06:49) Other Makes patient hallucinate heavily Home Medications: Ambulatory Orders Insulin Glargine [Toujeo Solostar] 66 unit SC BEDTIME 04/17/16 Liraglutide [Victoza] 1.8 mg SC BEDTIME 04/17/16 Metoprolol Succinate [Toprol Xl] 200 mg PO DAILY 04/17/16 Aspirin [Aspirin Adult Low Dose] 162 mg PO DAILY 08/05/16 Nitroglycerin 0.4 mg Tab [Nitrostat] 0.4 mg SL Q5MIN PRN #15 bttl 04/03/17 Amlodipine Besylate [Norvasc] 2.5 mg PO DAILY 09/21/17 Apixaban [Eliquis] 5 mg PO BID 09/21/17 Isosorbide Mononitrate [Isosorbide Mononitrate ER] 30 mg PO DAILY 09/21/17 Rosuvastatin Calcium [Crestor] 10 mg PO DAILY 09/21/17 Valsartan-Hydrochlorothiazide [Diovan Hct 320-25 mg] 1 tab PO DAILY 09/21/17 Clonidine HCl 0.1 mg PO BID 11/05/17 raNITIdine HCL [Zantac] 150 mg PO BID #30 tab 11/05/17 Review of Systems - Review of Systems Constitutional: States: no symptoms reported EENTM: States: no symptoms reported Respiratory: States: no symptoms reported Cardiology: States: see HPI, chest pain Gastrointestinal/Abdominal: States: no symptoms reported Genitourinary: States: no symptoms reported Musculoskeletal: States: no symptoms reported Skin: States: no symptoms reported Neurological: States: no symptoms reported Endocrine: States: no symptoms reported Hematologic/Lymphatic: States: no symptoms reported Past Medical History (General) - Patient Medical History Hx Seizures: No Hx Stroke: No Hx Dementia: No Hx Asthma: No Hx of COPD: No Hx Cardiac Disorders: Yes - A-fib Hx Congestive Heart Failure: No Hx Pacemaker: No Hx Hypertension: Yes Hx Thyroid Disease: No Hx Diabetes: Yes Hx Gastroesophageal Reflux: Yes Hx Renal Disease: No Hx Cancer: No Hx of HIV: No Hx Hepatitis C: No Hx MRSA: No - Vaccination History Hx Tetanus, Diphtheria Vaccination: No Hx Influenza Vaccination: No Hx Pneumococcal Vaccination: Yes - Social History Hx Tobacco Use: No Hx Chewing Tobacco Use: No Hx Alcohol Use: No Hx Substance Use: No Hx Substance Use Treatment: No Hx Depression: No Hx Physical Abuse: No Hx Emotional Abuse: No Family Medical History - Family History Father Living Status: Hx Cardiac Disease: Yes - multiple family members Physical Exam - Physical Exam General Appearance: Alert, Comfortable, Obese Eyes, Ears, Nose, Throat Exam: PERRL/EOMI, normal ENT inspection, pharynx normal Neck: non-tender, full range of motion, supple, normal inspection Respiratory: lungs clear, normal breath sounds, no respiratory distress, no accessory muscle use Cardiovascular/Chest: irregularly irregular Gastrointestinal/Abdominal: non tender, soft Extremity: normal range of motion, non-tender Neurologic: panman II-XII nml as tested, no motor/sensory deficits, alert, normal mood/affect, oriented x 3 Skin Exam: normal color, warm/dry Lymphatic: no adenopathy Progress - Progress Progress: 11/05/17 11:03 Doubt cardiac etiology given no acute distress on exam, stable EKG without ST elevation, and normal serial Troponins. Suspect esophagitis based on clinical history and improvement s/p NTG. This may still have a cardiac origin given Patient's extensive cardiovascular risk factors. He is safe for discharge home with plan to call his PCM and Ball Worker to inform them of his ER visit and set up follow-up. Strict return precautions given as well. Trial of Zantac. Pt involved and engaged in this decision-making and planning process. 11/05/17 11:12 BP elevation improved s/p NTG 0.4 mg SL x 1 and Metoprolol 5 mg IV x 1. - Results/Orders Results/Orders: Chest X-ray Report: COMPARISON: September 21, 2017 and May 20, 2017 FINDINGS: Cardiac silhouette shows stable cardiomegaly without congestive failure. Lungs are clear without focal consolidative infiltrates. Bilateral costophrenic angles are sharp. No pneumothorax. Visualized osseous structures show no destructive lesions. IMPRESSION: No radiographic evidence for acute cardiopulmonary process. 11/05/17 10:13 Telemetry .ONCE Sodium Chloride 0.9% (Flush) [Saline Flush Syringe] 10 ml IV PRN PRN EKG Stat Pulse Ox Stat 11/05/17 12:20 [employer] Stat Laboratory Results - last 24 hr 11/05/17 11/05/17 11/05/17 10:20 10:20 10:20 WBC 7.1 Cancelled RBC 5.97 Cancelled Hgb 15.8 Cancelled Hct 48.2 Cancelled MCV 80.8 Cancelled MCH 26.4 L Cancelled MCHC 32.7 L Cancelled RDW 15.9 H Cancelled Plt Count 154 Cancelled MPV 9.1 Cancelled Absolute Neuts (auto) 4.00 Cancelled Absolute Lymphs (auto) 2.30 Cancelled Absolute Monos (auto) 0.70 Cancelled Absolute Eos (auto) 0.10 Cancelled Absolute Basos (auto) 0.00 Cancelled Neutrophils % 55.4 Cancelled Lymphocytes % 31.9 Cancelled Monocytes % 10.4 H Cancelled Eosinophils % 1.7 Cancelled Basophils % 0.6 Cancelled Differential Comment Cancelled RBC Morphology Cancelled PT 17.1 H INR 1.520 PTT (SP) 36.0 Sodium 141 Cancelled Potassium 3.1 L Cancelled Chloride 99 L Cancelled Carbon Dioxide 32 H Cancelled Anion Gap 13.1 Cancelled BUN 21 H Cancelled Creatinine 1.12 Cancelled BUN/Creatinine Ratio 18.8 Cancelled Random Glucose 132 H Cancelled Serum Osmolality 286.1 Cancelled Calcium 9.0 Cancelled Magnesium 1.8 Total Bilirubin Cancelled AST Cancelled ALT Cancelled Alkaline Phosphatase Cancelled Creatine Kinase 85 CK-MB (CK-2) 2.1 CK-MB (CK-2) % Not Reportable Troponin I 0.03 B-Natriuretic Peptide 272.0 H* Serum Total Protein Cancelled Albumin Cancelled Globulin Cancelled Albumin/Globulin Ratio Cancelled 11/05/17 12:20 WBC RBC Hgb Hct MCV MCH MCHC RDW Plt Count MPV Absolute Neuts (auto) Absolute Lymphs (auto) Absolute Monos (auto) Absolute Eos (auto) Absolute Basos (auto) Neutrophils % Lymphocytes % Monocytes % Eosinophils % Basophils % Differential Comment RBC Morphology PT INR PTT (SP) Sodium Potassium Chloride Carbon Dioxide Anion Gap BUN Creatinine BUN/Creatinine Ratio Random Glucose Serum Osmolality Calcium Magnesium Total Bilirubin AST ALT Alkaline Phosphatase Creatine Kinase 81 CK-MB (CK-2) CK-MB (CK-2) % Troponin I 0.03 B-Natriuretic Peptide Serum Total Protein Albumin Globulin Albumin/Globulin Ratio - EKG/XRAY/CT EKG: Atrial, Fibrillation - 69 bpm with PVCs - no significant change from EKG May and Sep. No S-T elevation. XRAY: chest - see above. Departure - Departure Clinical Impression: Esophagitis, Hypokalemia Chest pain Qualifiers: Chest pain type: other chest pain Qualified Code(s): R07.89 - Other chest pain Hypertensive heart disease Qualifiers: Heart failure presence: without heart failure Qualified Code(s): I11.9 - Hypertensive heart disease without heart failure Atrial fibrillation Qualifiers: Atrial fibrillation type: chronic Qualified Code(s): I48.2 - Chronic atrial fibrillation Time of Disposition: 13:00 Disposition: Discharge to Home or Self Care Condition: Fair Departure Forms: ED Discharge - Pt. Copy, Patient Portal Self Enrollment Instructions: DI for Chest Pain Referrals: Alcon Hollis MD [Primary Care Provider] - 1 Week Prescriptions: raNITIdine HCL [Zantac] 150 mg PO BID #30 tab Home Medications: Ambulatory Orders Insulin Glargine [Toujeo Solostar] 66 unit SC BEDTIME 04/17/16 Liraglutide [Victoza] 1.8 mg SC BEDTIME 04/17/16 Metoprolol Succinate [Toprol Xl] 200 mg PO DAILY 04/17/16 Aspirin [Aspirin Adult Low Dose] 162 mg PO DAILY 08/05/16 Nitroglycerin 0.4 mg Tab [Nitrostat] 0.4 mg SL Q5MIN PRN #15 bttl 04/03/17 Amlodipine Besylate [Norvasc] 2.5 mg PO DAILY 09/21/17 Apixaban [Eliquis] 5 mg PO BID 09/21/17 Isosorbide Mononitrate [Isosorbide Mononitrate ER] 30 mg PO DAILY 09/21/17 Rosuvastatin Calcium [Crestor] 10 mg PO DAILY 09/21/17 Valsartan-Hydrochlorothiazide [Diovan Hct 320-25 mg] 1 tab PO DAILY 09/21/17 Clonidine HCl 0.1 mg PO BID 11/05/17 raNITIdine HCL [Zantac] 150 mg PO BID #30 tab 11/05/17 Additional Instructions: Increase potassium supplementation to three times a week. Trial of Zantac to see if this helps with suspected esophagitis/GERD. Call Dr. Shane and Dr. Hollis to inform them of your ER visit and set up follow- up appointments. Return to ER if condition recurs and/or worsens.
[2017-11-05] MEDS ORDERED: ASPIRIN (CHEWABLE) 81 MG TAB PO ONE (10:15)
[2017-11-05 10:19] VITALS: TEMP 97.5
--- NOTE | 2017-11-05 10:56 | RAD ---
EXAM DESCRIPTION: Chest,1 View CLINICAL HISTORY: chest pain COMPARISON: September 21, 2017 and May 20, 2017 FINDINGS: Cardiac silhouette shows stable cardiomegaly without congestive failure. Lungs are clear without focal consolidative infiltrates. Bilateral costophrenic angles are sharp. No pneumothorax. Visualized osseous structures show no destructive lesions. IMPRESSION: No radiographic evidence for acute cardiopulmonary process. Electronically signed by: Rich Wilkins MD 11/05/2017 10:55 AM [employer]
[2017-11-05 11:07] VITALS: O2SAT 95
[2017-11-05 13:01] VITALS: BP 155/95
== END 2017-11-05 13:00 | disposition home or self-care (01) ==
LOC: ER 10:05
DX: R07.9 Chest pain, unspecified (principal); I11.9 Hypertensive heart disease without heart failure; I48.91 Unspecified atrial fibrillation; E87.6 Hypokalemia; K20.9 Esophagitis, unspecified; I49.3 Ventricular premature depolarization; E11.9 Type 2 diabetes mellitus without complications; K21.9 Gastro-esophageal reflux disease without esophagitis; Z79.4 Long term (current) use of insulin; Z79.82 Long term (current) use of aspirin; Z79.899 Other long term (current) drug therapy; Z88.5 Allergy status to narcotic agent; Z88.0 Allergy status to penicillin

== ENCOUNTER → 2018-09-17 | Outpatient (CLI) | payer BC | LOC: GMAJ 14:22 | PROVIDERS: ATTEND Family Medicine | DX: R11.0 Nausea (principal) ==

== ENCOUNTER → 2018-09-24 | Outpatient (CLI) | payer BC ==
--- NOTE | 2018-09-24 11:53 | US ---
EXAM DESCRIPTION: Liver CLINICAL HISTORY: 72 years Male, ABDOMIN PAIN COMPARISON: None. FINDINGS: Upper quadrant hepatic sonography demonstrates a lobulated surface of the liver with moderate echogenicity with a pattern most consistent with cirrhosis of the liver. Liver is borderline enlarged at 15.8 cm portal vein is patent and estimated at 10 mm in diameter with hepatopetal flow. No ascites in the right upper quadrant is evident. No focal mass within the modestly echogenic liver that is with a very slight heterogeneous architecture is noted. Gallbladder is normally distended with a wall upper normal at 3 mm with the common duct normal at 5 mm. Right kidney is 11.7 cm in length without cyst or mass or obstruction. Pancreas is poorly visualized with no gross abnormality. The aorta and vena cava were not evaluated. IMPRESSION: 1. Echogenic and slightly heterogeneous and lobulated liver most consistent with cirrhosis of the liver without focal mass. 2. Normal biliary ductal system and no evidence of ascites. Electronically signed by: Dalton Owens MD 09/24/2018 11:52 AM [facility]
== END ==
LOC: US 08:31
PROVIDERS: ATTEND Internal Medicine Gastroenterology
DX: R10.84 Generalized abdominal pain (principal); R11.0 Nausea

== ENCOUNTER 2018-10-21 06:09 | Day surgery (SDC) | payer BC, MEDICARE ==
[~2018-10-21 06:09] MED LIST: LACTATED RINGERS 1,000 ML ONE
[2018-10-21] MEDS ORDERED: MIDAZOLAM INJ 2 MG/2 ML VIAL ONE (07:51)
--- NOTE | 2018-10-21 09:54 | OP ---
DATE OF PROCEDURE: 10/21/18 PREPROCEDURE DIAGNOSIS: 1. Nausea/vomiting. 2. Newly diagnosed cirrhosis. POSTPROCEDURE DIAGNOSIS: 1. Gastroesophageal junction polyp. 2. Erythematous gastropathy. 3. Otherwise, normal examination. PROCEDURE: 1. Esophagogastroduodenoscopy. SURGEON: Josh Colbert MD COMPLICATIONS: No immediate complications. SEDATION: The patient was sedated via IV propofol by the Anesthesia Department. CONSENT: Prior to the procedure, risks, benefits and alternatives to the therapy were discussed with the patient. The risks included bleeding, infection , perforation and . The patient agreed to the procedure and signed a consent. PREPROCEDURE ANESTHESIA ASSESSMENT: An examination revealed no contraindication to sedation. Airway examination demonstrated a Mallampati class type 2, ASA grade assessment type 2. Throughout the procedure, the patient's blood pressure, pulse and oxygen saturation were monitored continuously. PROCEDURE: The patient was placed in the left lateral decubitus position. Bite block was placed in the mouth between the teeth. The Olympus endoscope was introduced through the oropharynx, esophagus, stomach and the second portion of the duodenum. The scope was retracted and the mucosa visualized. The entirety of the exam was performed under direct visualization. Retroflexion was performed in the stomach. The patient tolerated the procedure well. FINDINGS: 1. The esophagus was entirely normal. There was no evidence of varices. 2. Two small sessile polyps were found at the gastroesophageal junction. Biopsies were taken with cold forceps from these polyps. 3. Diffuse, striped erythema was found in the gastric antrum. Biopsies with cold forceps were obtained. Otherwise, the stomach was normal. 4. The duodenum was entirely normal. RECOMMENDATION: 1. Return the patient home. 2. Resume previous diet. 3. Continue present medications including acid suppressant medication. 4. Return to my office in the following two weeks. 5. The findings were discussed with the patient and family members. #[id number] [facility]
[2018-10-21] MEDS ORDERED: LIDOCAINE 1% 10 ML VIAL INJ ONE (10:00)
[2018-10-21] MEDS ORDERED: PROPOFOL 200 MG/20 ML VIAL IV ONE (10:00)
[2018-10-21 10:19] VITALS: O2SAT 94
[2018-10-21 10:28] VITALS: BP 178/90; TEMP 97
== END 2018-10-21 10:05 | disposition home or self-care (01) ==
LOC: AMB 06:09
PROVIDERS: ATTEND Internal Medicine Gastroenterology
DX: R11.2 Nausea with vomiting, unspecified (principal); K29.50 Unspecified chronic gastritis without bleeding; K31.7 Polyp of stomach and duodenum; K74.60 Unspecified cirrhosis of liver; K21.9 Gastro-esophageal reflux disease without esophagitis; I25.10 Atherosclerotic heart disease of native coronary artery without angina pectoris; I10 Essential (primary) hypertension; E11.9 Type 2 diabetes mellitus without complications; I48.91 Unspecified atrial fibrillation; Z95.5 Presence of coronary angioplasty implant and graft; Z88.5 Allergy status to narcotic agent; Z88.0 Allergy status to penicillin; Z88.8 Allergy status to other drugs, medicaments and biological substances; Z79.01 Long term (current) use of anticoagulants; Z79.82 Long term (current) use of aspirin; Z79.4 Long term (current) use of insulin; Z79.899 Other long term (current) drug therapy
CPT/HCPCS: 00731; 36416; 43239; 82948; J2250; J3490; J7120

== ENCOUNTER 2019-05-02 06:57 | Emergency (ER) | payer MEDICARE ==
[2019-05-02] MEDS ORDERED: ASPIRIN (CHEWABLE) 81 MG TAB PO ONE (07:22)
[2019-05-02] MEDS ORDERED: NITROGLYCERIN 2% 1 GM UD TOP ONE (07:22)
--- NOTE | 2019-05-02 07:29 | ED.PDOC ---
History of Present Illness - General Chief Complaint: Chest Pain/UT Stated Complaint: chest pain Time Seen by Provider: 05/02/19 07:22 Source: patient Exam Limitations: no limitations - History of Present Illness Initial Comments: 73 yo male s/p PTCA x 3 in 2000, atrial fibrillation rate controlled with metoprolol, on Eloquis, IDDM, no history of tobacco use, + hx of multiple knee surgeries presents with chest pain for 2 hours. Sharp in nature with radiation to the back. Worse with breathing deeply. Has associated dyspnea. He normally can walk several blocks but today it is only about 5 -10 yards. Had a previous episode 8 months ago that was diagnosed as "esophageal spasm" at OSH. Pain is constant. No other associated symptoms. Patient took three 81 mg asipirins this morning after the pain started as well as two SL nitrotabs which had no effect. Sheriff is Dr. Ortiz whom he see here in town. No other complaints. Timing/Duration: 1-3 hours Severity: moderate Improving Factors: rest Worsening Factors: movement Associated Symptoms: shortness of breath Allergies/Adverse Reactions: Allergies Morphine Adverse Reaction (Verified 06/24/18 15:34) Other After several doses, felt like bees stinging him all over Penicillins Adverse Reaction (Verified 10/20/18 14:17) Tetracycline Adverse Reaction (Verified 06/24/18 15:34) Other Makes patient hallucinate heavily Home Medications: Ambulatory Orders Insulin Glargine [Toujeo Solostar] 66 unit SC BEDTIME 04/17/16 Liraglutide [Victoza] 1.8 mg SC BEDTIME 04/17/16 Metoprolol Succinate [Toprol Xl] 200 mg PO DAILY 04/17/16 Aspirin [Aspirin Adult Low Dose] 162 mg PO DAILY 08/05/16 Nitroglycerin 0.4 mg Tab [Nitrostat] 0.4 mg SL Q5MIN PRN #15 bttl 04/03/17 Amlodipine Besylate [Norvasc] 2.5 mg PO DAILY 09/21/17 Apixaban [Eliquis] 5 mg PO BID 09/21/17 Isosorbide Mononitrate [Isosorbide Mononitrate ER] 30 mg PO DAILY 09/21/17 Rosuvastatin Calcium [Crestor] 10 mg PO DAILY 09/21/17 Valsartan-Hydrochlorothiazide [Diovan Hct 320-25 mg] 1 tab PO DAILY 09/21/17 Clonidine HCl 0.1 mg PO BID 11/05/17 raNITIdine HCL [Zantac] 150 mg PO BID #30 tab 11/05/17 Review of Systems - Review of Systems Constitutional: States: no symptoms reported EENTM: States: no symptoms reported Respiratory: States: see HPI Cardiology: States: see HPI Gastrointestinal/Abdominal: States: see HPI Genitourinary: States: no symptoms reported Musculoskeletal: States: no symptoms reported Skin: States: no symptoms reported Neurological: States: no symptoms reported Endocrine: States: no symptoms reported Hematologic/Lymphatic: States: no symptoms reported Past Medical History (General) - Patient Medical History Hx Seizures: No Hx Stroke: No Hx Dementia: No Hx Asthma: No Hx of COPD: No Hx Cardiac Disorders: Yes - a fib Hx Congestive Heart Failure: No Hx Pacemaker: No Hx Hypertension: Yes Hx Thyroid Disease: No Hx Diabetes: Yes Hx Gastroesophageal Reflux: No Hx Renal Disease: No Hx Cancer: No Hx of HIV: No Hx Hepatitis C: No Hx MRSA: No - Vaccination History Hx Tetanus, Diphtheria Vaccination: No Hx Influenza Vaccination: No Hx Pneumococcal Vaccination: Yes Immunizations Up to Date: Yes - Social History Hx Tobacco Use: No Hx Chewing Tobacco Use: No Hx Alcohol Use: No Hx Substance Use: No Hx Substance Use Treatment: No Hx Depression: No Feels Threatened In Home Enviroment: No Feels Threatened In a Relationship: No Hx Physical Abuse: No Hx Emotional Abuse: No Hx Suspected Abuse: No - Activities of Daily Living Hospice Agency (if applicable):: None - Female History Patient is a Female of Child Bearing Age (10 -59 yrs old): No Family Medical History - Family History Father Living Status: Hx Cardiac Disease: Yes - multiple family members Physical Exam - Physical Exam General Appearance: Alert Eye Exam: right normal Ears, Nose, Throat: normal ENT inspection Neck: non-tender, full range of motion, supple Respiratory: lungs clear, normal breath sounds Cardiovascular/Chest: no edema, irregularly irregular, other - chest pain is not reproducible with palpation Gastrointestinal/Abdominal: normal bowel sounds, non tender, soft Back Exam: normal inspection, no CVA tenderness Extremity: normal range of motion, non-tender, normal inspection, no pedal edema 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-XII nml as tested, no motor/sensory deficits, alert, normal mood/affect, oriented x 3 Skin Exam: normal color Lymphatic: no adenopathy Progress - Progress Progress: 05/02/19 11:32 Laboratory Tests 05/02/19 05/02/19 05/02/19 07:05 07:05 07:05 WBC 11.3 H RBC 5.30 Hgb 14.9 Hct 45.1 MCV 85.0 MCH 28.1 MCHC 33.0 RDW 15.9 H Plt Count 163 MPV 10.0 Absolute Neuts (auto) 7.50 H Absolute Lymphs (auto) 2.30 Absolute Monos (auto) 1.10 H Absolute Eos (auto) 0.30 Absolute Basos (auto) 0.10 Neutrophils % 66.7 Lymphocytes % 20.4 Monocytes % 10.1 H Eosinophils % 2.3 Basophils % 0.5 PT 12.0 H INR 1.20 H PTT (SP) 26.7 D-Dimer, Quantitative Sodium 141 Potassium 2.8 L Chloride 99 L Carbon Dioxide 28 Anion Gap 16.8 BUN 25 H Creatinine 1.27 BUN/Creatinine Ratio 19.7 Random Glucose 127 H Serum Osmolality 287.2 Calcium 9.6 Magnesium 1.8 Total Bilirubin 2.3 H* Direct Bilirubin AST 22 ALT 16 Alkaline Phosphatase 69 Creatine Kinase 97 CK-MB (CK-2) 1.8 CK-MB (CK-2) % Not Reportable Troponin I 0.03 B-Natriuretic Peptide Serum Total Protein 8.6 H Albumin 4.4 Globulin 4.2 H Albumin/Globulin Ratio 1.0 L TSH Free T4 05/02/19 05/02/19 05/02/19 07:05 07:05 07:05 WBC RBC Hgb Hct MCV MCH MCHC RDW Plt Count MPV Absolute Neuts (auto) Absolute Lymphs (auto) Absolute Monos (auto) Absolute Eos (auto) Absolute Basos (auto) Neutrophils % Lymphocytes % Monocytes % Eosinophils % Basophils % PT INR PTT (SP) D-Dimer, Quantitative 0.39 Sodium Potassium Chloride Carbon Dioxide Anion Gap BUN Creatinine BUN/Creatinine Ratio Random Glucose Serum Osmolality Calcium Magnesium Total Bilirubin Direct Bilirubin 0.4 H AST ALT Alkaline Phosphatase Creatine Kinase CK-MB (CK-2) CK-MB (CK-2) % Troponin I B-Natriuretic Peptide 219.0 H* Serum Total Protein Albumin Globulin Albumin/Globulin Ratio TSH Free T4 05/02/19 10:13 WBC RBC Hgb Hct MCV MCH MCHC RDW Plt Count MPV Absolute Neuts (auto) Absolute Lymphs (auto) Absolute Monos (auto) Absolute Eos (auto) Absolute Basos (auto) Neutrophils % Lymphocytes % Monocytes % Eosinophils % Basophils % PT INR PTT (SP) D-Dimer, Quantitative Sodium Potassium Chloride Carbon Dioxide Anion Gap BUN Creatinine BUN/Creatinine Ratio Random Glucose Serum Osmolality Calcium Magnesium Total Bilirubin Direct Bilirubin AST ALT Alkaline Phosphatase Creatine Kinase 83 CK-MB (CK-2) 1.6 CK-MB (CK-2) % Troponin I 0.03 B-Natriuretic Peptide Serum Total Protein Albumin Globulin Albumin/Globulin Ratio TSH 1.43 Free T4 0.98 EKG showed atrial fibrillation with chronic inverted T waves in the lateral leads. Troponins x 2 were negative. Patient's chest pain resolved in the E.R. and he was no longer dyspneic T. bilirubin was 2.3. His last visit showed a T. bilirubin of 2.8. He has been evaluated by GI doctor since then . I recommended follow up this week with Dr. Hollis to retest his bilirubing and possibly further diagnositic staduies. Care instructions given. E.R. warnings given. Questions were elicited and answered. Patient voiced understanding and agreement with the plan. Departure - Departure Clinical Impression: Chest pain, Hyperbilirubinemia Disposition: Discharge to Home or Self Care Condition: Good Departure Forms: ED Discharge - Pt. Copy, Patient Portal Self Enrollment Instructions: DI for Chest Pain Diet: low fat, low cholesterol, diabetic diet Activity: increase activity as tolerated Referrals: Alcon Hollis MD [Primary Care Provider] - 1-2 Weeks Home Medications: Ambulatory Orders Insulin Glargine [Toujeo Solostar] 66 unit SC BEDTIME 04/17/16 Liraglutide [Victoza] 1.8 mg SC BEDTIME 04/17/16 Metoprolol Succinate [Toprol Xl] 200 mg PO DAILY 04/17/16 Aspirin [Aspirin Adult Low Dose] 162 mg PO DAILY 08/05/16 Nitroglycerin 0.4 mg Tab [Nitrostat] 0.4 mg SL Q5MIN PRN #15 bttl 04/03/17 Amlodipine Besylate [Norvasc] 2.5 mg PO DAILY 09/21/17 Apixaban [Eliquis] 5 mg PO BID 09/21/17 Isosorbide Mononitrate [Isosorbide Mononitrate ER] 30 mg PO DAILY 09/21/17 Rosuvastatin Calcium [Crestor] 10 mg PO DAILY 09/21/17 Valsartan-Hydrochlorothiazide [Diovan Hct 320-25 mg] 1 tab PO DAILY 09/21/17 Clonidine HCl 0.1 mg PO BID 11/05/17 raNITIdine HCL [Zantac] 150 mg PO BID #30 tab 11/05/17 Additional Instructions: See your regular physician this week to have the bilirubin further investigated. Return to the E.R. if chest pain returns, for abdominal pain, or for a temperature above 100.3. Critical Care Note - Critical Care Note Total Time (mins): 105
--- NOTE | 2019-05-02 07:52 | RAD ---
CHEST 05/02/2019 CLINICAL HISTORY: Chest COMPARISON: Chest 06/24/2018 TECHNIQUE: AP Chest. FINDINGS: Moderate cardiac enlargement. Normal pulmonary vascularity. Lungs and pleural spaces. Unremarkable soft tissues and bones. IMPRESSION: 1. Cardiomegaly. No acute chest disease. Electronically signed by: Romi Zhao DO 05/02/2019 7:50 AM CDT
[2019-05-02] MEDS ORDERED: KCL 20MEQ/WATER FOR INJ 100ML 20 MEQ in PREMIX BAG 1 BAG IVPB ONE (07:59)
[2019-05-02] MEDS ORDERED: KCL 20MEQ/WATER FOR INJ 100ML 100 ML IVPB ONE (08:02)
--- NOTE | 2019-05-02 09:46 | CT ---
PROCEDURE: CT Angiography Chest With Intravenous Contrast CLINICAL INDICATION: The patient is 73 years years old, Male; chest pain with radiation to the back, HTN TECHNIQUE: Axial computed tomographic angiography images of the chest with intravenous contrast using pulmonary embolism protocol. Sagittal and coronal reformatted images were created and reviewed. Sagittal and coronal reformatted images were created and reviewed. This CT exam was performed using one or more of the following dose reduction techniques: automated exposure control, adjustment of the mA and/or kV according to patient size, and/or use of iterative reconstruction technique. MIP reconstructed images were created and reviewed. COMPARISON: No relevant prior studies available. FINDINGS: PULMONARY ARTERIES: Evaluation of the pulmonary arterial vessels demonstrates no CT evidence of acute pulmonary embolus. There is no evidence of right to left interventricular septal bowing. AORTA: There is scattered atherosclerosis without evidence of aneurysm or dissection in the aorta. LUNGS: Slight prominence of the interlobular septa in the lung bases may reflect mild edema. No mass. No acute consolidation. PLEURAL SPACE: Unremarkable. No significant effusion. No pneumothorax. HEART: There is moderate LAD and right coronary atherosclerosis. The heart appears mildly enlarged with a small amount of pericardial fluid on the right and inferiorly. BONES/JOINTS: There is no evidence of acute fracture, osseous destruction or osteoblastic changes. There are diffuse enthesopathic changes including a rolling pattern of ossification in the thoracic spine consistent with diffuse idiopathic skeletal hyperostosis (DISH). SOFT TISSUES: Unremarkable. LYMPH NODES: Unremarkable. No enlarged hilar, mediastinal or axillary lymph nodes. UPPER ABDOMEN: There is nonspecific bilateral adrenal thickening, probably adenomatous with attenuations measuring 1-10 Hounsfield units, likely adenomatous. The spleen is enlarged, measuring 14.1 cm AP. Remaining visualized upper abdominal viscera are unremarkable. IMPRESSION: 1. No evidence of acute pulmonary emboli. 2. There is moderate LAD and right coronary atherosclerosis. Electronically signed by: Sulema Bernabe MD 05/02/2019 9:44 AM CDT
[2019-05-02] MEDS ORDERED: ALUM & MAG HYDROX-SIMETHICONE 30 ML, LIDOCAINE VISCOUS 2% 15 ML PO ONE ×2 (11:31)
[2019-05-02] MEDS ORDERED: ALUM & MAG HYDROX-SIMETHICONE 30 ML UD ONE (11:33)
[2019-05-02] MEDS ORDERED: LIDOCAINE HCL 2% (MOUTH-THROAT) 15 ML UD ONE (11:33)
[2019-05-02 12:09] VITALS: BP 164/92; TEMP 99.2; O2SAT 98
== END 2019-05-02 12:09 | disposition home or self-care (01) ==
LOC: ER 06:57
DX: R07.9 Chest pain, unspecified (principal); E80.6 Other disorders of bilirubin metabolism; I48.91 Unspecified atrial fibrillation; R06.00 Dyspnea, unspecified; I10 Essential (primary) hypertension; E11.9 Type 2 diabetes mellitus without complications; Z79.01 Long term (current) use of anticoagulants; Z79.82 Long term (current) use of aspirin; Z79.899 Other long term (current) drug therapy; Z79.4 Long term (current) use of insulin; Z88.5 Allergy status to narcotic agent; Z88.0 Allergy status to penicillin; Z88.3 Allergy status to other anti-infective agents
CPT/HCPCS: 36415; 71045; 71275; 80053; 82248; 82550; 82553; 83735; 83880; 84439; 84443; 84484; 85025; 85045; 85379; 85610; 85730; 93005; J3480

== ENCOUNTER → 2019-08-03 | Outpatient (CLI) | payer MEDICARE | LOC: GMAJ 10:38 | PROVIDERS: ATTEND Family Medicine | DX: Z12.5 Encounter for screening for malignant neoplasm of prostate (principal); E11.9 Type 2 diabetes mellitus without complications; I10 Essential (primary) hypertension; E78.00 Pure hypercholesterolemia, unspecified ==